=== PATIENT | female | born 1985 | race American Indian/Alaskan Native ===

== ENCOUNTER 2018-05-15 15:56 | Inpatient (IN) | payer MEDICAID, OTHER ==
[2018-05-15] MEDS ORDERED: D5LR 1,000 ML IV SCH (18:00)
[2018-05-15] MEDS ORDERED: ZOFRAN IV PRN (19:53)
--- NOTE | 2018-05-15 19:57 | Short Stay Summary ---
Short Stay Documentation Date of service: 05/15/18 Narrative H&P: Pt is a 32 year old at 10 weeks gestation (EDC 12/11/18) sent from the office for evaluation of hyperemesis gravidarum. She has been vomiting in the office and unable to keep anything down despite Promethazine rectal suppositories for the past 2 weeks at home. She has lost 15 lbs. She denies abdominal pain, chest pain or shortness of breath, headache, diarrhea or constipation. She report urinary frequency but denies dysuria, back pain, fever, chills, malaise, pelvic pain or vaginal bleeding. She will therefore be admitted for IV hydration and IV antiemetics. - History Principal diagnosis: Hyperemesis H&P: obtained from office Past Medical History: other (Asthma) Past Surgical History: No surgical history Social history: no significant social history, single - Allergies and Medications Current Medications: Allergies naproxen sodium [From Aleve] Allergy (Verified 12/18/13 03:46) Anaphylaxis epidural Allergy (Uncoded 05/15/18 17:23) Shortness of Breath Home Medications Medication Instructions Recorded Confirmed Last Taken Type ALBUTEROL Inhaler (OR & NICU) 2 puff IH QID PRN 12/18/13 12/18/13 Unknown History [Proair] ALBUTEROL NEB's [Proventil 0.083% 2.5 mg IH Q4H PRN #25 neb 12/18/13 Unknown Rx NEBS] Albuterol Sulfate [Ventolin HFA] 2 puff IH Q4H PRN #1 hfa.aer.ad 12/18/13 Unknown Rx Azithromycin [Zithromax Z-AYSHA] 250 mg PO DAILY #6 tablet 12/18/13 Unknown Rx Benzonatate [Tessalon Perles] 100 mg PO Q8HR PRN #21 capsule 12/18/13 Unknown Rx HYDROcodone/APAP 5-325 [[place] 1 each PO Q6HR PRN #12 tablet 12/18/13 Unknown Rx 5-325 mg TAB] Ondansetron [Zofran Odt] 4 mg PO Q6H PRN #8 tab.rapdis 12/18/13 Unknown Rx Active Medications Dextrose/Lactated Ringer's (D5lr) 1,000 mls @ 150 mls/hr IV DIRECT SERGIO Last Admin: 05/15/18 18:30 Dose: 150 mls/hr - Physical exam General appearance: mild distress Lungs: Clear to auscultation Heart: Regular rate Gastrointestinal: normal Female Genitourinary: deferred Rectal Exam: deferred Extremities: No edema Neurological: Normal gait, Normal speech - Hospital course Hospital course: Unremarkable. Improved with IV hydration and IV antiemetics - Disposition Condition at discharge: Good Disposition: DC-01 TO HOME OR SELFCARE Short Stay Discharge Plan Activity: no restrictions Diet: regular Additional Instructions: [] Smoking cessation referral if applicable(refer to patient education folder for contact #) [] Refer to [facility] Booklet Call your doctor immediately for: * Fever > 100.5 * Heavy vaginal bleeding ( >1 pad per hour) * Severe persistent headache * Shortness of breath * Reddened, hot, painful area to leg or breast Follow up with: TOBY RODRIGUEZ [Primary Care Provider] - 7 Days Forms: [facility] Discharge Summary
[2018-05-15 20:24] LABS: Basophils % (Auto) 0.4 % (0.0-1.8); Eosinophils # (Auto) 0.1 K/mm3 (0.0-0.4); Eosinophils % (Auto) 0.8 % (0.0-4.3); Hematocrit 37.1 % (30.3-42.9); Hemoglobin 12.7 gm/dl (10.1-14.3); Lymphocytes # (Auto) 2.2 K/mm3 (1.2-5.4); Lymphocytes % (Auto) 22.5 % (13.4-35.0); Mean Corpuscular HGB Conc 34 % (30-34); Mean Corpuscular Hemoglobin 29 pg (28-32); Mean Corpuscular Volume 85 fl (79-97); Monocytes # (Auto) 1.2 K/mm3 (0.0-0.8); Monocytes % (Auto) 11.9 % (0.0-7.3); Platelet Count 233 K/mm3 (140-440); Red Blood Count 4.35 M/mm3 (3.65-5.03)
[2018-05-15 20:37] LABS: BUN/Creatinine Ratio 20; Blood Urea Nitrogen 6 mg/dL (7-17); Calcium 9.3 mg/dL (8.4-10.2); Hemolysis Index 2
[2018-05-15 20:41] LABS: Alanine Aminotransferase 58 units/L (7-56); Albumin 3.9 g/dL (3.9-5); BUN/Creatinine Ratio 17; Blood Urea Nitrogen 5 mg/dL (7-17); Calcium 9.3 mg/dL (8.4-10.2); Hemolysis Index 4; Lipase 42 units/L (13-60)
[2018-05-15 20:47] LABS: Hepatitis B Core IgM Non-Reactive (NonReactive); Hepatitis B Surface Antigen Non-Reactive (Negative); Hepatitis C Virus Antibody Non-Reactive (NonReactive)
[2018-05-15] MEDS ORDERED: INFUVITE 10 ML in D5LR 1,000 ML IV ONE (20:53)
[2018-05-16] MEDS: D5LR 1,000 ML IV SCH ×4 (00:46→22:37)
[2018-05-16] MEDS: REGLAN IV SCH ×4 (00:46→18:27)
[2018-05-16] MEDS: PHENERGAN PR SCH ×4 (00:48→18:25)
[2018-05-16 01:19] LABS: Bilirubin,Urine NEG (Negative); Blood,Urine NEG (Negative); Mucus,Urine 3+ /HPF
[2018-05-16 01:20] LABS: Color,Urine Yellow (Yellow)
[2018-05-16] MEDS: PRENATAL VITAMIN PO SCH (10:24)
--- NOTE | 2018-05-16 11:36 | Progress Note ---
Assessment and Plan A: at 10 weeks gestation. Hyperemesis gravidarum. Low TSH. P: Check hemoglobin A1C, urine C&S, UDS. Obtain US for confirmation of IUP, EDC , and number of fetuses. Obtain APA consult due to low TSH. Continue IV hydration and antiemetics. Gradually advance diet as tolerated. Subjective - Subjective Date of service: 05/16/18 Principal diagnosis: Hyperemesis Interval history: 32 year old at 10 weeks gestation (EDC 12/11/18) being treated for hyperemesis gravidarum. Patient has been receiving IV hydration, IV Reglan, IV Zofran. She has also been receiving promethazine rectal suppositories. Patient states her nausea is improving and she has not vomited this morning. She states for the past 2 weeks at home she feels she has vomited most everything that she ate and drank. Patient denies abdominal pain. She denies chest pain or shortness of breath. She denies headache. She denies diarrhea or constipation. She report urinary frequency but denies dysuria, back pain, fever, chills, or malaise. She denies pelvic pain or vaginal bleeding. Past medical history is significant for asthma (no recent attacks and not requiring medications for several years); meningitis as an . Home medications: Vitamin, Zofran, Reglan. Allergies: Aleve, reaction to epidural medications in past (itching and SOB). [employer] history: . 2 previous term vaginal births without complications. Has had hyperemesis gravidarum with a previous . Denies history of abnormal pap smears or STIs. Surgical history: negative. Social history: Denies use of cigarettes or alcohol. Admits to use of marijuana. Denies use of any other drugs. Denies abuse. States she feels safe in her current relationship. Increased financial stress. Family history: Graves disease (father), atrial fibrillation (father), hypoglycemia (mother). Patient reports: no new complaints, no vaginal bleeding, no contractions Objective - Vital Signs Vital Signs: Vital Signs - 12hr 05/16/18 05/16/18 00:00 04:25 Temperature 98.4 F 98.2 F Pulse Rate 73 76 Respiratory 20 20 Rate Blood Pressure 121/78 116/73 [Left] - Exam Narrative Exam: Patient is well appearing, alert, oriented, NAD. Not actively vomiting at this time. Thyroid nontender, ULN size, no palpable mass. Cardiovascular: Regular rate, Normal S1, Normal S2 Lungs: Clear to auscultation Abdomen: Present: normal appearance, soft, normal bowel sounds. Absent: distention, tenderness, guarding, rigidity - Labs Labs: Abnormal Labs 05/15/18 05/15/18 05/15/18 20:03 20:03 20:09 Leon % (Auto) 11.9 H Leon # 1.2 H Sodium 134 L Carbon Dioxide 20 L BUN 6 L Creatinine 0.3 L Glucose 107 H ALT TSH 0.019 L 05/15/18 20:10 Leon % (Auto) Leon # Sodium Carbon Dioxide 19 L BUN 5 L Creatinine 0.3 L Glucose 107 H ALT 58 H TSH Laboratory Results - last 24 hr 05/15/18 05/15/18 05/15/18 00:57 00:57 20:03 WBC 9.9 RBC 4.35 Hgb 12.7 Hct 37.1 MCV 85 MCH 29 MCHC 34 RDW 14.0 Plt Count 233 Lymph % (Auto) 22.5 Leon % (Auto) 11.9 H Eos % (Auto) 0.8 Baso % (Auto) 0.4 Lymph # 2.2 Leon # 1.2 H Eos # 0.1 Baso # 0.0 Seg Neutrophils % 64.4 Seg Neutrophils # 6.3 Sodium Potassium Chloride Carbon Dioxide Anion Gap BUN Creatinine Estimated GFR BUN/Creatinine Ratio Glucose Calcium Total Bilirubin AST ALT Alkaline Phosphatase Total Protein Albumin Albumin/Globulin Ratio Amylase Lipase TSH Urine Color Yellow Urine Turbidity Slightly-cloudy Urine pH 5.0 Ur Specific [place] 1.028 Urine Protein 100 mg/dl Urine Glucose (UA) Neg Urine Ketones 80 80 Urine Blood Neg Urine Nitrite Neg Urine Bilirubin Neg Urine Urobilinogen 2.0 Ur Leukocyte Esterase Neg Urine WBC (Auto) 2.0 Urine RBC (Auto) 4.0 U Epithel Cells (Auto) 1.0 Urine Mucus 3+ Hep Bs Antigen Hep B Core IgM Ab Hepatitis C Antibody 05/15/18 05/15/18 05/15/18 20:03 20:03 20:09 WBC RBC Hgb Hct MCV MCH MCHC RDW Plt Count Lymph % (Auto) Leon % (Auto) Eos % (Auto) Baso % (Auto) Lymph # Leon # Eos # Baso # Seg Neutrophils % Seg Neutrophils # Sodium 134 L Potassium 3.7 Chloride 102.5 Carbon Dioxide 20 L Anion Gap 15 BUN 6 L Creatinine 0.3 L Estimated GFR > 60 BUN/Creatinine Ratio 20 Glucose 107 H Calcium 9.3 Total Bilirubin AST ALT Alkaline Phosphatase Total Protein Albumin Albumin/Globulin Ratio Amylase Lipase TSH 0.019 L Urine Color Urine Turbidity Urine pH Ur Specific [place] Urine Protein Urine Glucose (UA) Urine Ketones Urine Blood Urine Nitrite Urine Bilirubin Urine Urobilinogen Ur Leukocyte Esterase Urine WBC (Auto) Urine RBC (Auto) U Epithel Cells (Auto) Urine Mucus Hep Bs Antigen Non-reactive Hep B Core IgM Ab Non-reactive Hepatitis C Antibody Non-reactive 05/15/18 05/16/18 20:10 08:00 WBC RBC Hgb Hct MCV MCH MCHC RDW Plt Count Lymph % (Auto) Leon % (Auto) Eos % (Auto) Baso % (Auto) Lymph # Leon # Eos # Baso # Seg Neutrophils % Seg Neutrophils # Sodium 137 Potassium 3.8 Chloride 105.7 Carbon Dioxide 19 L Anion Gap 16 BUN 5 L Creatinine 0.3 L Estimated GFR > 60 BUN/Creatinine Ratio 17 Glucose 107 H Calcium 9.3 Total Bilirubin 0.30 AST 30 ALT 58 H Alkaline Phosphatase 63 Total Protein 7.3 Albumin 3.9 Albumin/Globulin Ratio 1.1 Amylase 99 Lipase 42 TSH Urine Color Urine Turbidity Urine pH Ur Specific [place] Urine Protein Urine Glucose (UA) Urine Ketones Negative Urine Blood Urine Nitrite Urine Bilirubin Urine Urobilinogen Ur Leukocyte Esterase Urine WBC (Auto) Urine RBC (Auto) U Epithel Cells (Auto) Urine Mucus Hep Bs Antigen Hep B Core IgM Ab Hepatitis C Antibody
--- NOTE | 2018-05-16 14:42 | Ultrasound Report ---
FINAL REPORT EXAM: US OB TRANSVAGINAL HISTORY: To confirm IUP and EDC TECHNIQUE: Ultrasound evaluation of the pelvis using TRANSVAGINAL technique PRIORS: Transabdominal Ob ultrasound 05/16/2018 FINDINGS: A gestational sac is present in the endometrial cavity containing a yolk sac and pole. viability is documented with evidence of cardiac activity. pole crown-rump length: 32.4 mm heart rate: 180 beats per minute Average estimated gestational age by ultrasound: 10 weeks 1 day Estimated delivery date: 12/11/2018 The uterine echotexture is homogenous and without evidence of mass. Ovaries only visualized with transabdominal technique. No evidence of solid ovarian mass. The adnexa are normal. There is no cul-de-sac free fluid. IMPRESSION: Single viable intrauterine with the above parameters
--- NOTE | 2018-05-16 14:44 | Ultrasound Report ---
FINAL REPORT EXAM: US OB < = 14 WEEKS FETUS HISTORY: For confirmation of IUP and EDC TECHNIQUE: Ultrasound evaluation of the gravid uterus, transabdominal PRIORS: Transvaginal Ob ultrasound 05/16/2018 THE FINDINGS: A gestational sac is present in the endometrial cavity containing a yolk sac and pole. viability is documented with evidence of cardiac activity. pole crown-rump length: 32.4 mm heart rate: 180 beats per minute Average estimated gestational age by ultrasound: 10 weeks 1 day Estimated delivery date: 12/11/2018 The uterine echotexture is homogenous and without evidence of mass. Ovaries only visualized with transabdominal technique. No evidence of solid ovarian mass. The adnexa are normal. There is no cul-de-sac free fluid. IMPRESSION: Single viable intrauterine with the above parameters
--- NOTE | 2018-05-16 17:33 | Event Note ---
Date: 05/16/18 Free T4 within normal range. T3 is send out test and result not yet available. Spoke with Dr. Rolle from [facility] and consult canceled due to normal free T4.
[2018-05-16] MEDS ORDERED: LACTATED RINGERS 500 ML IV ONE (18:58)
[2018-05-17 00:39] LABS: Amphetamine Screen,Urine PRESUMPTIVE NEGATIVE; Benzodiazepines Screen,Urine PRESUMPTIVE NEGATIVE; Cannabinoid Screen,Urine PRESUMPTIVE NEGATIVE; Cocaine Screen,Urine PRESUMPTIVE NEGATIVE; Methadone Screen,Urine PRESUMPTIVE NEGATIVE; Opiate Screen,Urine PRESUMPTIVE NEGATIVE
[2018-05-17] MEDS: PHENERGAN PR SCH ×4 (00:39→18:44)
[2018-05-17] MEDS: REGLAN IV SCH ×4 (00:39→18:39)
[2018-05-17] MEDS: D5LR 1,000 ML IV SCH ×3 (04:06→17:54)
[2018-05-17] MEDS: PRENATAL VITAMIN PO SCH (09:35)
--- NOTE | 2018-05-17 15:08 | Progress Note ---
Assessment and Plan A: at 10 weeks, 2 days gestation. Hyperemesis gravidarum. Glucose intolerance. P: Advance diet to bland solids. Continue IV antiemetics and promethazine rectal suppositories. Possible discharge tomorrow if pt. able to keep bland solid foods down. Subjective - Subjective Date of service: 05/17/18 Principal diagnosis: Hyperemesis gravidarum Interval history: 32 year old at 10 weeks, 2 days gestation (EDC 12/11/18) being treated for hyperemesis gravidarum. Patient has been receiving IV hydration, IV Reglan, IV Zofran. She has also been receiving promethazine rectal suppositories. Patient states her nausea is improving and she has not vomited today. She states all she has kept down today is broth. She states she is going to try some solid bland food for dinner and again at breakfast. Patient denies abdominal pain. She denies chest pain or shortness of breath. She denies headache. She denies diarrhea or constipation. She report urinary frequency but denies dysuria, back pain, fever, chills, or malaise. She denies pelvic pain or vaginal bleeding. Hemoglobin A1C elevated. TSH low but free T4 in normal range. Other thyroid tests were sent out. Patient reports: no new complaints, no vaginal bleeding, no contractions Objective - Vital Signs Vital Signs: Vital Signs - 12hr 05/17/18 05/17/18 04:00 07:37 Temperature 98.8 F 98.5 F Pulse Rate 74 76 Respiratory 18 16 Rate Blood Pressure 101/47 102/48 [Left] O2 Sat by Pulse 98 Oximetry - Exam Cardiovascular: Regular rate, Normal S1, Normal S2 Lungs: Clear to auscultation Abdomen: Present: normal appearance, soft, normal bowel sounds. Absent: distention, tenderness, guarding, rigidity Extremities: normal - Labs Labs: Abnormal Labs 05/15/18 05/15/18 05/15/18 20:03 20:03 20:09 [place] % (Auto) 11.9 H [place] # 1.2 H Sodium 134 L Carbon Dioxide 20 L BUN 6 L Creatinine 0.3 L Glucose 107 H Hemoglobin A1c ALT TSH 0.019 L 05/15/18 05/16/18 20:10 11:37 [place] % (Auto) [place] # Sodium Carbon Dioxide 19 L BUN 5 L Creatinine 0.3 L Glucose 107 H Hemoglobin A1c 6.1 H ALT 58 H TSH Laboratory Results - last 24 hr 05/16/18 05/17/18 05/17/18 15:09 00:10 11:30 Free T4 1.42 Urine Ketones Neg Urine Opiates Screen Presumptive negative Urine Methadone Screen Presumptive negative Ur Barbiturates Screen Presumptive negative Ur Phencyclidine Scrn Presumptive negative Ur Amphetamines Screen Presumptive negative U Benzodiazepines Scrn Presumptive negative Urine Cocaine Screen Presumptive negative U Marijuana (THC) Screen Presumptive negative Drugs of Abuse Note Disclamer
[2018-05-18] MEDS: PHENERGAN PR SCH ×3 (01:12→13:56)
[2018-05-18] MEDS: REGLAN IV SCH ×3 (01:12→10:10)
[2018-05-18] MEDS: D5LR 1,000 ML IV SCH (01:42)
--- NOTE | 2018-05-18 09:07 | Discharge Summary ---
Providers - Providers Date of Admission: 05/15/18 16:27 Date of discharge: 05/18/18 Attending physician: TOBY RODRIGUEZ 05/15/18 Consult to Case Management [CONS] Routine Services Needed at Discharge: Home Health Services Notified:: yes Phone number called:: [phone] Was contact made?: Yes If yes, spoke with:: Mr Edouard Time called:: 13:00 Comment:: Spoke to Mr. Edouard and he said he would see patient 05/15/18 19:53 Consult to Dietitian/Nutrition [CONS] Routine Physician Instructions: Reason For Exam: Reason for Consult: hyper grav Reason for Consult: Poor oral intake Primary care physician: TOBY RODRIGUEZ Hospitalization Reason for admission: other (Hyperemesis at 10 weeks.) Procedure: other (IV hydration, zofran) Discharge diagnosis: other (Hyperemesis gravidarum.) Hospital course: Patient was admitted 3 days ago for intractable vomiting and inability to keep any PO intake. She was given IV fluid, zofran. She was able to tolerate regular diet yesterday evening. This AM, she denies any nausea or vomiting. She wants to go home. She will be discharged with zofran Q8 hrs PRN. She was told to follow up in the office in 2 weeks. Condition at discharge: Stable Disposition: DC-01 TO HOME OR SELFCARE - Discharge Diagnoses (1) Hyperemesis affecting , antepartum Status: Acute (2) Dehydration Status: Acute Plan - Provider Discharge Summary Activity: routine Diet: routine Instructions: routine Additional instructions: [] Smoking cessation referral if applicable(refer to patient education folder for contact #) [] Refer to [facility] Booklet Call your doctor immediately for: * Fever > 100.5 * Heavy vaginal bleeding ( >1 pad per hour) * Severe persistent headache * Shortness of breath * Reddened, hot, painful area to leg or breast * Drainage or odor from incision. * Keep incision clean and dry at all times and follow doctor's instructions regarding bathing/showering - Follow up plan Follow up: TOBY RODRIGUEZ [Primary Care Provider] - 7 Days
[2018-05-18 10:57] VITALS: BP 109/61
--- NOTE | 2018-05-18 12:17 | Progress Note ---
Assessment and Plan - Patient Problems (1) Hyperemesis affecting , antepartum Current Visit: Yes Status: Acute Plan to address problem: Patient is being discharged home today. She was told to follow up in the office in 2 weeks. Rx was sent for zofran. (2) Dehydration Current Visit: Yes Status: Acute Subjective - Subjective Date of service: 05/18/18 Principal diagnosis: Hyperemesis gravidarum Interval history: Patient was admitted with hyperemesis gravidarum. She was treated with IV fluids , zofran. She has been feeling better. She is tolerating regular diet. Objective - Vital Signs Latest vital signs: Vital Signs Temp Pulse Resp BP 05/18/18 08:00 98.6 F 75 20 109/61 05/18/18 04:40 98.0 F 75 20 111/71 05/18/18 00:00 98.6 F 75 20 102/46 05/17/18 20:00 98.2 F 97 H 20 100/53 05/17/18 16:30 98.5 F 82 18 126/76 Intake and Output 05/17/18 05/18/18 05/18/18 23:59 07:59 15:59 Intake Total 1370 1360 Output Total 400 Balance 1370 960 Intake: IV 1010 1000 D5lr 1,000 ml @ 150 mls/ 1000 1000 hr IV DIRECT SERGIO Rx#: [id number] Left Wrist 10 Oral 360 360 Output: Urine 400 Void 400 Other: Total, Intake Amount 360 120 Total, Output Amount 100 Voiding Method Toilet # Voids Indwelling Catheter 2 - Exam Cardiovascular: Present: Normal S1, Normal S2 Lungs: Present: Clear to auscultation Deep Tendon Reflex Grade: Normal +2
[2018-05-20 08:25] LABS: Hepatitis A Antibody IgM NonReactive (NonReactive)
== END 2018-05-18 11:45 | disposition home or self-care (01) | DRG 833 ==
LOC: UNDOADMIN 15:56 → OB 15:56
PROVIDERS: ADMIT Obstetrics & Gynecology; ATTEND Obstetrics & Gynecology
DX: O21.1 Hyperemesis gravidarum with metabolic disturbance (principal); Z3A.10 10 weeks gestation of pregnancy; Z79.51 Long term (current) use of inhaled steroids; Z79.899 Other long term (current) drug therapy; Z82.49 Family history of ischemic heart disease and other diseases of the circulatory system; Z84.89 Family history of other specified conditions
CPT/HCPCS: 36415; 76801; 76817; 80048; 80053; 80074; 80307; 81001; 82010; 82150; 83036; 83690; 84439; 84443; 84480; 84481; 85025; 87086; J2405; J2765; J7120; J7121

== ENCOUNTER 2018-09-17 16:22 | Emergency (ER) | payer OTHER ==
[2018-09-17 16:36] VITALS: BP 119/59
--- NOTE | 2018-09-17 17:39 | Emergency Department Report ---
Chief Complaint: Medical Clearance Stated Complaint: RHOGHAM SHOT Time Seen by Provider: 09/17/18 17:17 - HPI History of Present Illness: This is a 32-year-old female who presents at 28 weeks gestation who was sent over here by her [employer] unless cycle for RhoGAM injection. Patient states she was seen at the office today with no problems and was sent here for RhoGAM injection. She admits to normal movement and no complaints. - ROS Review of Systems: As noted in HPI. - Exam Vital Signs: Vital Signs 09/17/18 16:34 Temperature 98.3 F Pulse Rate 88 Respiratory 16 Rate Blood Pressure 119/59 O2 Sat by Pulse 99 Oximetry Physical Exam: GENERAL: Alert and oriented x3, no apparent distress, Normal Gait, atraumatic. LUNGS: Symetrical with respiration, No wheezing, no rales or crackles, CTAB. HEART: S1, S2 present, regular rate and rhythm without murmur, no rubs, no gallops. Non tender to palpation ABDOMEN: Gravid uterus, No organomegaly was noted,Positive bowel sounds, soft, and non-distended. Nontender to palpation on all Quadrants, NO CVA tenderness. MSE screening note: Focused history and physical exam performed. Due to findings the following was ordered: ED Medical Decision Making - Medical Decision Making This is a 32-year-old female presents for RhoGAM injection. Type and screen ordered. Patient is blood type B negative. RhoGAM was administered to the right gluteus by the nurse. Patient operative procedure well. Discussed the patient will follow-up with her [employer] as scheduled. ED Disposition for MSE Clinical Impression: Encounter for prophylactic administration of RhoGAM Disposition: - TO HOME OR SELFCARE Is pt being admited?: No Does the pt Need Aspirin: No Condition: Stable Instructions: Rho(D) Immune Globulin (Injection) Additional Instructions: Follow-up with the [employer] as scheduled Referrals: ARMANDO SOW DO [Primary Care Provider] - 3-5 Days [facility] [Provider Group] - 3-5 Days Forms: Accompanied Note, Work/School Release Form(ED)
--- NOTE | 2018-09-17 17:53 | Emergency Department Report ---
Chief Complaint: Medical Clearance Stated Complaint: RHOGHAM SHOT Time Seen by Provider: 09/17/18 17:17 - Exam Vital Signs: Vital Signs 09/17/18 16:34 Temperature 98.3 F Pulse Rate 88 Respiratory 16 Rate Blood Pressure 119/59 O2 Sat by Pulse 99 Oximetry MSE screening note: Focused history and physical exam performed. Due to findings the following was ordered: ED Disposition for MSE Condition: Stable
== END 2018-09-17 20:24 | disposition home or self-care (01) ==
LOC: ED 16:22
DX: O26.893 Other specified pregnancy related conditions, third trimester (principal); O36.0930 Maternal care for other rhesus isoimmunization, third trimester, not applicable or unspecified; Z88.8 Allergy status to other drugs, medicaments and biological substances
CPT/HCPCS: 86850; 86900; 86901; 99282; J2790